=== PATIENT | female | born 1990 | race American Indian/Alaskan Native ===

== ENCOUNTER 2017-03-22 21:25 | Emergency (ER) | payer SELFPAY ==
[2017-03-22 22:18] VITALS: BP 123/85
[2017-03-22 22:42] LABS: Hemoglobin 11.9 gm/dl (10.1-14.3); Mean Corpuscular HGB Conc 33 % (30-34); Mean Corpuscular Volume 78 fl (79-97); Platelet Count 400 K/mm3 (140-440); Red Blood Count 4.61 M/mm3 (3.65-5.03); Red Cell Distribution Width 14.9 % (13.2-15.2); White Blood Count 7.8 K/mm3 (4.5-11.0)
[2017-03-22 23:00] LABS: Anion Gap 18 mmol/L; Blood Urea Nitrogen 7 mg/dL (7-17); Carbon Dioxide 26 mmol/L (22-30); Chloride 96.6 mmol/L (98-107); Glucose 97 mg/dL (65-100); Potassium 3.9 mmol/L (3.6-5.0); Sodium 137 mmol/L (137-145)
[2017-03-22 23:05] LABS: Mean Corpuscular Hemoglobin 26 pg (28-32)
--- NOTE | 2017-03-22 23:23 | Cat Scan Report ---
FINAL REPORT PROCEDURE: CT HEAD/BRAIN WO CON TECHNIQUE: Computerized tomography of the head was performed without contrast material. HISTORY: headache sice March 12 COMPARISON: No prior studies are available for comparison. FINDINGS: Skull and scalp: Normal. Paranasal sinuses: Normal. Ventricles and subarachnoid spaces: Normal. Cerebrum: No evidence of hemorrhage, acute infarction or mass . Cerebellum and brainstem: No evidence of hemorrhage, acute infarction or mass. Vasculature: Normal. Comments: None. IMPRESSION: Normal Examination
[2017-03-22] MEDS ORDERED: BENADRYL IV ONE (23:45)
[2017-03-22] MEDS ORDERED: REGLAN IV ONE (23:45)
--- NOTE | 2017-03-22 23:53 | Emergency Department Report ---
ED Headache HPI - General Chief Complaint: Headache Stated Complaint: L SIDE HEAD PAIN Time Seen by Provider: 03/22/17 22:53 - History of Present Illness Initial Comments: This is a 26-year-old female well-nourished with nontoxic or ill in appearance who presents with headache that began 03/12/2017. Patient described as intermittent headache that comes and goes. Patient stated taken Tylenol with mild relief. Patient stated that Tylenol has not been helping the past couple days. Patient location of headache is left temporal region. Patient denies any nausea vomiting, chest pain, short of breath, as it is, blurry vision, thunderclap headache, abdominal pain. Patient stated the headache as a gradual onset that it describes a throbbing. Patient stated to darkness Makes her headache feels better. Stated light and noise makes her headache worse. Patient denies any trauma to head. Denies stiff neck. Patient states the level is a 10 out of 10. Patient's mother is currently at bedside [facility]. Patient allergies to aspirin. Timing/Duration: constant, other (10 days) Quality: moderate Head Injury Location: temporal (left) Recent Head Trauma: no recent headache/trauma Associated Symptoms: denies symptoms. denies: confusion, fatigue, facial pain, fever/chills, flushing, loss of consciousness, nausea/vomiting, nasal congestion , numbness in legs/feet, rash, seizures, sinus infection, stiff neck, vision changes, weakness Allergies/Adverse Reactions: Allergies aspirin Allergy (Verified 03/22/17 22:07) Itching Home Medications: Ambulatory Orders Ibuprofen [Motrin 600 MG tab] 600 mg PO Q8H PRN #12 tablet 03/23/17 ED Review of Systems ROS: Stated complaint: L SIDE HEAD PAIN Other details as noted in HPI Constitutional: denies: chills, fever Eyes: denies: eye pain, eye discharge, vision change ENT: denies: ear pain, throat pain Respiratory: denies: cough, shortness of breath, wheezing Cardiovascular: denies: chest pain, palpitations Endocrine: no symptoms reported Gastrointestinal: denies: abdominal pain, nausea, diarrhea Genitourinary: denies: urgency, dysuria, discharge Musculoskeletal: denies: back pain, joint swelling, arthralgia Skin: denies: rash, lesions Neurological: denies: headache, weakness, paresthesias Psychiatric: denies: anxiety, depression Hematological/Lymphatic: denies: easy bleeding, easy bruising ED Past Medical Hx - Past Medical History Previous Medical History?: No - Social History Smoking Status: Unknown if ever smoked - Medications Home Medications: Home Medications Medication Instructions Recorded Confirmed Last Taken Type Ibuprofen [Motrin 600 MG tab] 600 mg PO Q8H PRN #12 tablet 03/23/17 Unknown Rx ED Physical Exam - General Limitations: No Limitations General appearance: alert, in no apparent distress - Head Head exam: Present: atraumatic, normocephalic - Eye Eye exam: Present: normal appearance, PERRL, EOMI Pupils: Present: normal accommodation - ENT ENT exam: Present: normal exam, normal orophraynx, mucous membranes moist, TM's normal bilaterally, normal external ear exam - Neck Neck exam: Present: normal inspection, full ROM. Absent: tenderness, meningismus, lymphadenopathy, thyromegaly - Respiratory Respiratory exam: Present: normal lung sounds bilaterally. Absent: respiratory distress, wheezes, rales, rhonchi, stridor, chest wall tenderness, accessory muscle use, decreased breath sounds, prolonged expiratory - Cardiovascular Cardiovascular Exam: Present: regular rate, normal rhythm, normal heart sounds. Absent: bradycardia, tachycardia, irregular rhythm, systolic murmur, diastolic murmur, rubs, gallop - GI/Abdominal GI/Abdominal exam: Present: soft, normal bowel sounds. Absent: distended, tenderness, guarding, rebound, rigid, diminished bowel sounds, hyperactive bowel sounds - Extremities Exam Extremities exam: Present: normal inspection, full ROM, normal capillary refill. Absent: tenderness, pedal edema, joint swelling, calf tenderness - Back Exam Back exam: Present: normal inspection, full ROM. Absent: tenderness, CVA tenderness (R), CVA tenderness (L), muscle spasm, paraspinal tenderness, vertebral tenderness, rash noted - Neurological Exam Neurological exam: Present: alert, oriented X3, CN II-XII intact, normal gait - Expanded Neurological Exam Expanded Patient oriented to: Present: person, place, time Speech: Present: fluid speech (normal speech) Cranial nerves: EOM's Intact: Normal, Gag Reflex: Normal, Tongue Deviation: Normal, Nystagmus: Normal, Facial Sensation: Normal, Facial Palsy with Forehead Movement: Normal, Facial Palsy without Forehead Movement: Normal Cerebellar function: Finger to Nose: Normal, Heel to Ward: Normal, Romberg: Normal Upper motor neuron: Bryant Neglect: Normal, Pronator Drift: Normal, Babinski Sign : Normal, Sensory Extinction: Normal Sensory exam: Upper Extremity Light Touch: Normal, Upper Extremity Pin Prick: Normal, Upper Extremity Temperature: Normal, UE 2 Point Discrimination: Normal, Lower Extremity Light Touch: Normal, Lower Extremity Pin Prick: Normal, Lower Extremity Temperature: Normal, LE 2 Point Discrimination: Normal Motor strength exam: RUE: 5, LUE: 5, RLE: 5, LLE: 5 Best Eye Response ([place]): (4) open spontaneously Best Motor Response ([place]): (6) obeys commands Best Verbal Response (Trudy): (5) oriented Trudy Total: 15 - Psychiatric Psychiatric exam: Present: normal affect, normal mood - Skin Skin exam: Present: warm, dry, intact, normal color. Absent: rash ED Course Vital Signs 03/22/17 22:10 Temperature 99.2 F Pulse Rate 95 H Respiratory 20 Rate Blood Pressure 123/85 O2 Sat by Pulse 97 Oximetry ED Medical Decision Making - Lab Data Result diagrams: 03/22/17 22:30 03/22/17 22:30 - Medical Decision Making Ed course: This is a 26-year-old female that presents with migraine headache. 1- a CT scan of the head/brain without contrast has been obtained. Dictated by Dr. Gordon. Impression: Normal examination. 2- CT scan has been notified to the patient. No questions noted by the patient. 3- patient received Reglan and Benadryl IV in the ED. Patient did have significant relief of the headache with the level 0 out of 10 currently. Patient was instructed not to operate heavy machinery due to sedation of Benadryl in the ED. Patient stated her mother with driving her home. 4- ibuprofen 600 mg by mouth has been prescribed at time of discharge. 5- at time time of discharge, the patient does not seem toxic or ill in appearance. No acute signs of distress noted. Patient agrees to discharge treatment plan of care. No further questions noted by the patient. 6- patient was instructed to follow-up with her primary care doctor in 3-5 days or if symptoms worsen such as severe sudden onset of headache, nausea vomiting, chest pain, shortness of breath, dizziness, blurred vision report back to emergency room. Critical care attestation.: If time is entered above; I have spent that time in minutes in the direct care of this critically ill patient, excluding procedure time. ED Disposition Clinical Impression: Migraine Qualifiers: Migraine type: unspecified Status migrainosus presence: without status migrainosus Intractability: not intractable Qualified Code(s): G43.909 - Migraine, unspecified, not intractable, without status migrainosus Disposition: DISCHARGED TO HOME OR SELFCARE Is pt being admited?: No Does the pt Need Aspirin: No Condition: Stable Instructions: Ibuprofen (By mouth), Acute Headache (ED), Migraine Headache (ED) Additional Instructions: follow-up with your primary care doctor in 3-5 days or if symptoms worsen such as severe sudden onset of headache, nausea vomiting, chest pain, shortness of breath, dizziness, blurred vision report back to emergency room. Take ibuprofen as prescribed as needed. Prescriptions: Ibuprofen [Motrin 600 MG tab] 600 mg PO Q8H PRN #12 tablet PRN Reason: Pain Referrals: PRIMARY MD DEEPAK [Primary Care Provider] - 3-5 Days [facility] [Outside] - 3-5 Days [facility] [Outside] - 3-5 Days ANGELA STOUT JR, MD [Staff Physician] - 3-5 Days Forms: Work/School Release Form(ED)
== END 2017-03-23 00:39 | disposition home or self-care (01) ==
LOC: ED 21:25
DX: G43.909 Migraine, unspecified, not intractable, without status migrainosus (principal); Z88.6 Allergy status to analgesic agent
CPT/HCPCS: 36415; 70450; 80048; 85027; 96374; 96375; 99284; J1200; J2765

== ENCOUNTER 2017-05-30 22:20 | Emergency (ER) | payer OTHER ==
[2017-05-31 00:13] LABS: Basophils % (Auto) 0.5 % (0.0-1.8); Eosinophils % (Auto) 2.1 % (0.0-4.3); Hematocrit 36.4 % (30.3-42.9); Mean Corpuscular HGB Conc 33 % (30-34); Mean Corpuscular Hemoglobin 26 pg (28-32); Mean Corpuscular Volume 80 fl (79-97); Platelet Count 416 K/mm3 (140-440); Red Blood Count 4.55 M/mm3 (3.65-5.03); Red Cell Distribution Width 14.7 % (13.2-15.2); White Blood Count 8.5 K/mm3 (4.5-11.0)
[2017-05-31 00:21] LABS: Blood Urea Nitrogen 9 mg/dL (7-17); Calcium 9.2 mg/dL (8.4-10.2); Carbon Dioxide 26 mmol/L (22-30); Chloride 95.5 mmol/L (98-107); Glucose 93 mg/dL (65-100); Potassium 3.4 mmol/L (3.6-5.0); Sodium 136 mmol/L (137-145)
[2017-05-31 00:23] LABS: Anion Gap 18 mmol/L
--- NOTE | 2017-05-31 04:55 | Cat Scan Report ---
FINAL REPORT PROCEDURE: CT HEAD/BRAIN WO CON TECHNIQUE: Computerized tomography of the head was performed without contrast material. HISTORY: Headache COMPARISON: No prior studies are available for comparison. FINDINGS: Skull and scalp: Normal. Paranasal sinuses: Normal. Ventricles and subarachnoid spaces: Normal. Cerebrum: No evidence of hemorrhage, acute infarction or mass . Cerebellum and brainstem: No evidence of hemorrhage, acute infarction or mass. Vasculature: Normal. Comments: None. IMPRESSION: Normal Examination
[2017-05-31] MEDS ORDERED: NORCO 5/325 PO ONE (05:08)
--- NOTE | 2017-05-31 05:26 | Emergency Department Report ---
HPI - General Chief Complaint: Dizziness Time Seen by Provider: 05/31/17 03:09 - HPI HPI: This is a 27-year-old Afro-Palest[place] female presents to the emergency Department , after being dropped off to be seen, with complaint of a one-day history of a right-sided frontal headache. Patient says that she has some blurriness in the right eye as well. She also normally wears glasses and they broke and therefore she is having some difficulty seeing overall as well. She denies any nausea, vomiting, slurred speech, chest pain, fever or any other neurological deficits. She tried Tylenol once for symptoms that any relief. She denies any past medical history. Past surgical history is only a tubal ligation. She does not currently have a primary care physician. No recent travel or sick contacts at home. ED Past Medical Hx - Past Medical History Previous Medical History?: No - Surgical History Additional Surgical History: Tubal Ligation - Social History Smoking Status: Never Smoker Substance Use Type: None - Medications Home Medications: Home Medications Medication Instructions Recorded Confirmed Last Taken Type Ibuprofen [Motrin 600 MG tab] 600 mg PO Q8H PRN #12 tablet 03/23/17 Unknown Rx HYDROcodone/APAP 5-325 [Fairburn 1 each PO Q8H PRN #8 tablet 05/31/17 Unknown Rx 5-325 mg TAB] ED Review of Systems ROS: Stated complaint: HEAD/NECK PAIN DIZZINESS Other details as noted in HPI Comment: All other systems reviewed and negative Constitutional: denies: chills, fever Eyes: vision change. denies: eye pain ENT: denies: ear pain, throat pain Respiratory: denies: cough, shortness of breath, wheezing Cardiovascular: denies: chest pain, palpitations Gastrointestinal: denies: abdominal pain, nausea, diarrhea Genitourinary: denies: urgency, dysuria, discharge Musculoskeletal: denies: back pain, joint swelling, arthralgia Skin: denies: rash, lesions Neurological: headache, other (Dizziness). denies: weakness, paresthesias Physical Exam - Physical Exam Vital Signs: Vital Signs 05/30/17 22:48 Temperature 98.5 F Pulse Rate 83 Respiratory 18 Rate Blood Pressure 130/78 Blood Pressure 130/78 [Left] O2 Sat by Pulse 100 Oximetry Physical Exam: GENERAL: The patient is well-developed well-nourished. HEENT: Normocephalic. Atraumatic. Extraocular motions are intact. Patient has moist mucous membranes. Pupils equal reactive to light bilaterally. Visual acuity: Both eyes 20/50, OD 20/100, OS 20/70 all uncorrected. NECK: Supple. No meningitic signs are noted. Trachea is midline. CHEST/LUNGS: Clear to auscultation. There is no respiratory distress noted. HEART/CARDIOVASCULAR: Regular. There is no tachycardia. There is no gallop rub or murmur. ABDOMEN: Abdomen is soft, nontender. Patient has normal bowel sounds. There is no abdominal distention. SKIN: Skin is warm and dry. NEURO: The patient is awake, alert, and oriented. The patient is cooperative. The patient has no focal neurologic deficits. The patient has normal speech. Cranial nerves II through XII grossly intact. MUSCULOSKELETAL: There is no tenderness or deformity. There is no limitation range of motion. There is no evidence of acute injury. Muscle strength 5 out of 5 for upper and lower extremities bilaterally. ED Course Vital Signs 05/30/17 22:48 Temperature 98.5 F Pulse Rate 83 Respiratory 18 Rate Blood Pressure 130/78 Blood Pressure 130/78 [Left] O2 Sat by Pulse 100 Oximetry ED Medical Decision Making - Lab Data Result diagrams: 05/30/17 23:27 05/30/17 23:27 - EKG Data -: EKG Interpreted by Nd EKG shows normal: sinus rhythm, axis, intervals, QRS complexes, ST-T waves Rate: normal - EKG Data When compared to previous EKG there are: previous EKG unavailable Interpretation: normal EKG - Radiology Data Radiology results: report reviewed CT of the head does not show any acute process including no hemorrhage, mass, shift, diffuse edema or skull fracture. - Medical Decision Making 27-year-old female presents to the emergency department with a complaint of a right frontal headache and some dizziness. She has some intermittent right eye blurry vision. Visual acuity is bad overall but she does not have her glasses. There are otherwise no focal, motor or sensory deficits in her cranial nerves are intact. Labs are mostly unremarkable. She does have some elevation in the ESR but patient is young without any temporal discomfort in lower suspicion for arteritis. CT head does not show any bleed, shift, mass or any acute process. Patient was seen and the joint in the emergency department and appears stable during so. She already has a primary care physician and director credit risk for follow-up. She was given a [place]burn for her discomfort upon reevaluation she is feeling improved. She appears safe for discharge home at this time. She will return to the ER with any worsening of her symptoms or any acute distress. - Differential Diagnosis migraine, tension headache, cluster headache, vertigo Critical Care Time: No Critical care attestation.: If time is entered above; I have spent that time in minutes in the direct care of this critically ill patient, excluding procedure time. ED Disposition Clinical Impression: Dizziness Headache Qualifiers: Headache type: unspecified Headache chronicity pattern: acute headache Intractability: not intractable Qualified Code(s): R51 - Headache Disposition: DC-01 TO HOME OR SELFCARE Is pt being admited?: No Condition: Stable Instructions: Acute Headache (ED), Dizziness (ED), Lightheadedness (ED) Additional Instructions: Please follow-up with your primary care physician and your director credit risk in the next few days. Return to the emergency department with any worsening of your symptoms or any acute distress. You've been prescribed a medication that is sedating. Therefore this medication cannot be mixed with alcohol, or taken prior to driving, working, or being responsible for children. Prescriptions: HYDROcodone/APAP 5-325 [Fairburn 5-325 mg TAB] 1 each PO Q8H PRN #8 tablet PRN Reason: Pain Referrals: PRIMARY CARE, [Primary Care Provider] - MARTIN Time of Disposition: 05:31
[2017-05-31 05:45] VITALS: BP 109/66
== END 2017-05-31 05:46 | disposition home or self-care (01) ==
LOC: ED 22:20
DX: R51 Headache (principal); R42 Dizziness and giddiness
CPT/HCPCS: 36415; 70450; 80048; 84443; 85025; 85652; 93005; 93010

== ENCOUNTER 2021-01-09 08:48 | Emergency (ER) | payer SELFPAY ==
[2021-01-09 09:02] VITALS: BP 135/80
[2021-01-09] MEDS ORDERED: ACETAMINOPHEN 500 MG TAB PO ONE (10:05)
[2021-01-09] MEDS ORDERED: CYCLOBENZAPRINE 10 MG TAB PO ONE (10:05)
[2021-01-09] MEDS ORDERED: dexAMETHasone 4 MG/ML VIAL IM ONE (10:05)
--- NOTE | 2021-01-09 10:05 | Emergency Department Report ---
ED Back Pain/Injury HPI - General Chief Complaint: Back Pain/Injury Stated Complaint: BACK PAIN Time Seen by Provider: 01/09/21 09:51 Source: patient Limitations: No Limitations - History of Present Illness Initial Comments: Patient is a 30-year-old -Burmese obese female that comes to the ER with lower back pain radiating down her right leg. This happened this morning when she was attempting to get out of bed. She states that she has had this before she has never been this bad. Patient denies any fall, trauma, car wreck, assault: Denies any trauma. Denies any urinary or abdominal symptoms. Denies any vaginal discharge or bleeding. Is currently on menses. Denies nausea vomiting or diarrhea. No one in her home is ill. Patient took nothing for the pain prior to arrival. Pain is described as an achiness and then a sharp shooting pain down her right leg. Is worse with movement. It is relieved with rest. Patient is on no home medications. Denies any major medical problems. States that she has had a tubal in the past. MD Complaint: back pain -: Sudden Similar Symptoms Previously: Yes Place: home Radiation: none Improves With: immobilization Worsens With: movement Associated Symptoms: denies other symptoms. denies: confusion, weakness, chest pain, numbness, cough, difficulty urinating, diaphoresis, incontinence, fever/chills, constipation, headaches, abdominal pain, loss of appetite, malaise, nausea/vomiting, rash, seizure, shortness of breath, syncope - Related Data Previous Rx's Medication Instructions Recorded Last Taken Type Cyclobenzaprine [Flexeril] 10 mg PO TID PRN #10 tablet 01/09/21 Unknown Rx Ibuprofen [Motrin] 800 mg PO Q8HR PRN #30 tablet 01/09/21 Unknown Rx predniSONE [Deltasone] 20 mg PO DAILY #5 tablet 01/09/21 Unknown Rx Allergies Allergy/AdvReac Type Severity Reaction Status Date / Time aspirin Allergy Itching Verified 01/09/21 08:57 ED Review of Systems ROS: Stated complaint: BACK PAIN Other details as noted in HPI Comment: All other systems reviewed and negative ED Past Medical Hx - Past Medical History Medical history: no medical history Psychiatric history: no pertinent history LMP comments: current Family history: no significant family history - Social History Smoking Status: Former Smoker Alcohol use: rarely Drug use: none ED Back Pain Physical Exam - Exam General: Vital signs noted. No distress. Alert and acting appropriately. Back/Abdomen: Yes Straight Leg Raise Pain (right), No Abdominal Tenderness, No Perithoracic Tenderness, No Perilumbar Tenderness, No Sacroiliac Tenderness, No Flank Tenderness Neuro: Yes Normal Sensation, Yes Normal DTR's, Yes Normal Gait (with limp ), No Motor Weakness ED Course Vital Signs 01/09/21 08:57 Temperature 98.9 F Pulse Rate 80 Respiratory 24 Rate Blood Pressure 135/80 O2 Sat by Pulse 98 Oximetry ED Medical Decision Making - Medical Decision Making Vital Signs 01/09/21 08:57 Temperature 98.9 F Pulse Rate 80 Respiratory 24 Rate Blood Pressure 135/80 O2 Sat by Pulse 98 Oximetry no urinary s/s no back pain no fever or chills no abd pain no nvd currently on menses no vag dc Patient neurovascularly intact. vss ambulatory; no trauma taking po medicated in ER with dec in pain. pt dc home with dc poc including pcp referral and follow up. she verbalizes understanding of plan of care. - Differential Diagnosis muscle spasm/urinary etio Critical care attestation.: If time is entered above; I have spent that time in minutes in the direct care of this critically ill patient, excluding procedure time. ED Disposition Clinical Impression: Lumbar back pain, Sciatica Disposition: DC-01 TO HOME OR SELFCARE Is pt being admited?: No Does the pt Need Aspirin: No Condition: Stable Instructions: Sciatica Additional Instructions: warm baths and compresses stretch work on weight loss meds as ordered today follow up with pcp next week if not better referral below Prescriptions: predniSONE [Deltasone] 20 mg PO DAILY #5 tablet Cyclobenzaprine [Flexeril] 10 mg PO TID PRN #10 tablet PRN Reason: Muscle Spasm Ibuprofen [Motrin] 800 mg PO Q8HR PRN #30 tablet PRN Reason: Pain, Moderate (4-6) Referrals: PRIMARY CARE, [Primary Care Provider] - 3-5 Days CULLEN BOOGIE MD [Staff Physician] - 3-5 Days Time of Disposition: 10:17
== END 2021-01-09 11:08 | disposition home or self-care (01) ==
LOC: ED 08:48
DX: M54.30 Sciatica, unspecified side (principal); M54.5 Low back pain; Z79.899 Other long term (current) drug therapy; Z88.8 Allergy status to other drugs, medicaments and biological substances; Z87.891 Personal history of nicotine dependence
CPT/HCPCS: 96372; 99283; J1100

== ENCOUNTER 2021-04-08 11:56 | Emergency (ER) | payer SELFPAY ==
[2021-04-08 12:54] VITALS: BP 136/91
[2021-04-08] MEDS ORDERED: KETOROLAC 60 MG/2 ML INJ IM ONE (13:49)
[2021-04-08] MEDS ORDERED: predniSONE 20 MG TAB PO ONE (13:49)
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
== END 2021-04-08 16:20 | disposition home or self-care (01) ==
LOC: ED 11:56
DX: S39.012A Strain of muscle, fascia and tendon of lower back, initial encounter (principal); G89.29 Other chronic pain; Z98.51 Tubal ligation status; Z87.891 Personal history of nicotine dependence; Z98.890 Other specified postprocedural states; Z79.899 Other long term (current) drug therapy; X58.XXXA Exposure to other specified factors, initial encounter; Y93.89 Activity, other specified; Y92.89 Other specified places as the place of occurrence of the external cause; Y99.8 Other external cause status
CPT/HCPCS: 96372; 99282; J1885; J7512